=== PATIENT | male | born 1980 | race Hispanic/Latino ===

== ENCOUNTER 2018-09-14 08:02 | Emergency (ER) | payer SELFPAY ==
[2018-09-14] MEDS ORDERED: SODIUM CHLORIDE 0.9% (FLUSH) 10 ML SYG IV PRN (08:14)
[2018-09-14 08:20] VITALS: TEMP 97.6
[2018-09-14] MEDS ORDERED: ALUM & MAG HYDROX-SIMETHICONE 30 ML, LIDOCAINE VISCOUS 2% 15 ML PO ONE ×2 (08:34)
--- NOTE | 2018-09-14 08:34 | ED.PDOC ---
History of Present Illness - General Chief Complaint: Chest Pain/NH Stated Complaint: chest pressure Time Seen by Provider: 09/14/18 08:10 Source: patient Exam Limitations: no limitations - History of Present Illness Initial Comments: 8 1/2 HR H/O L-SIDED CP. CP STARTED LAST NIGHT AT MIDNIGHT LAYING SUPINE. PT STATES HAS H/O OCCASIONAL GERD BUT DOES NOT TAKE MED FOR IT. PAIN HAS IMPROVED GREATLY BUT IS STILL PRESENT. HE HAS HAD INCREASED BURPING THIS AM. C/O SIMILAR SX APPROX 2 WKS AGO. Timing/Duration: 7-24 hours Severity/Quality: moderate, pressure Location: other - L CHEST Chest Pain Radiation: no radiation Activities at Onset: rest Prior Chest Pain/Cardiac Workup: no prior cardiac workup Improving Factors: nothing Worsening Factors: nothing, other - NOT WORSENED BY DEEP BREATH. Nitro Today/Relief: no nitro taken today Aspirin Treatment Today: no aspirin today Associated Symptoms: heartburn Allergies/Adverse Reactions: Allergies NO KNOWN ALLERGY Allergy (Verified 09/14/18 08:20) Home Medications: Ambulatory Orders NK [NK] 09/14/18 Review of Systems - Review of Systems Constitutional: States: no symptoms reported EENTM: States: no symptoms reported Respiratory: States: no symptoms reported. Denies: cough, short of breath Cardiology: States: chest pain. Denies: palpitations Gastrointestinal/Abdominal: Denies: abdominal pain, constipation, diarrhea, nausea Genitourinary: States: no symptoms reported Musculoskeletal: States: no symptoms reported Skin: States: no symptoms reported Neurological: States: no symptoms reported Endocrine: States: no symptoms reported Hematologic/Lymphatic: States: no symptoms reported All other Systems: Reviewed and Negative Past Medical History (General) - Patient Medical History Hx Stroke: No Hx Congestive Heart Failure: No Hx Diabetes: No Surgical History: no surgical history - Vaccination History Hx Influenza Vaccination: No - Social History Hx Tobacco Use: No Family Medical History - Family History Father Family History: Unknown Living Status: Unknown Physical Exam - Physical Exam General Appearance: Alert, Well Nourished Eyes, Ears, Nose, Throat Exam: PERRL/EOMI, normal ENT inspection Neck: non-tender, full range of motion, supple, other - ON BRUIT Respiratory: chest non-tender, lungs clear, normal breath sounds, no respiratory distress, no accessory muscle use Cardiovascular/Chest: normal peripheral pulses, regular rate, rhythm, no JVD, no murmur Gastrointestinal/Abdominal: normal bowel sounds, non tender, soft Extremity: normal range of motion, normal inspection 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 ALSO, PAIN IS REPRODUCED BY LUE EXAM (INTERNAL AND EXTERNAL ROTATION OF L SHOULDER AGAINST RESISTANCE PRODUCES THE PAIN IN THE L PECTORALIS MAJOR). PT MENTIONS HE LAYS TILE FOR WORK AND PRESSES DOWN USING LUE. INITIAL W/U NEG. REPEATING A 2ND TROPONIN TO R/O ACUTE CORONARY SYNDROME SINCE IT HAS NOW BEEN 11 1/2 HRS SINCE ONSET OF SX. MUSCULOSKELETAL, NON-CARDIAC PAIN. 09/14/18 12:29 TROP NEG X 2 over 12 hrs, thus ENOUGH TIME HAS LAPSED TO RULE OUT ACS IN THE ER. CKMB NEG. CK ELEVATED WHICH CORRELATES WITH MUSCLULOSKELETAL PAIN. CXR NEG. EKG NSR. CBC AND CMP NO CONCERNS. SAFE FOR DC TO HOME. PT STATES HE HAS ANTI-INFLAMMATORIES AT HOME WHICH HE WILL TAKE. Departure - Departure Clinical Impression: Musculoskeletal chest pain, Acute chest pain Disposition: Discharge to Home or Self Care Condition: Good Departure Forms: ED Discharge - Pt. Copy, Patient Portal Self Enrollment Instructions: Chest Pain That Is Not Caused by the Heart (DC) Diet: resume usual diet Activity: increase activity as tolerated Home Medications: Ambulatory Orders NK [NK] 09/14/18 Additional Instructions: Please follow-up with the clinic in [place] you usually go to in order to ensure health prevention such as your cholesterol.
[2018-09-14] MEDS ORDERED: LIDOCAINE HCL 2% (MOUTH-THROAT) 15 ML UD ONE (08:40)
[2018-09-14] MEDS ORDERED: ALUM & MAG HYDROX-SIMETHICONE 30 ML UD ONE (08:40)
--- NOTE | 2018-09-14 08:44 | RAD ---
EXAM DESCRIPTION: Chest,1 View CLINICAL HISTORY: 38 years Male, CHEST PAIN COMPARISON: None. IMPRESSION: Heart size and pulmonary vascularity are within normal limits. There is no airspace consolidation, pleural effusion, or pneumothorax. No acute osseous abnormality. Electronically signed by: Jose Ivey MD 09/14/2018 8:43 AM [facility]
[2018-09-14] MEDS ORDERED: MORPHINE SULFATE INJ 10 MG/ML VIAL IV ONE (11:25)
[2018-09-14 12:38] VITALS: BP 111/58; O2SAT 98
== END 2018-09-14 12:38 | disposition home or self-care (01) ==
LOC: ER 08:02
DX: R07.89 Other chest pain (principal)
CPT/HCPCS: 36415; 71045; 80053; 82550; 82553; 84484; 85025; 93005; J2270

== ENCOUNTER 2020-11-11 07:43 | Emergency (ER) | payer SELFPAY ==
--- NOTE | 2020-11-11 08:08 | ED.PDOC ---
History of Present Illness - General Chief Complaint: Chest Pain/VA Stated Complaint: chest pain X 1 week Time Seen by Provider: 11/11/20 07:48 Source: patient - History of Present Illness Initial Comments: PATIENT PRESENTS WITH SYMPTOMS OF "AIR IN MY CHEST", HE FEELS PRESSURE FROM HIS EPIGASTRIC AREA TO HIS RIGHT CHEST, SIMILAR TO SYMPTOMS PREVIOUSLY DIAGNOSED WITH GERD. ONSET LAST NIGHT WHILE ASLEEP SOME 8 HOURS AGO, HE IS NOT CURRENTLY TAKING ANY MEDICATION FOR GERD. HE WAS SUPPOSED TO GO GET WORK UP FOR REFLUX, BUT NEVER DID DUE TO PANDEMIC. DENIES N/V/SOB/ DIAPHORESIS. Severity/Quality: mild Chest Pain Radiation: no radiation Activities at Onset: sleep Prior Chest Pain/Cardiac Workup: non-cardiac Worsening Factors: nothing Allergies/Adverse Reactions: Allergies NO KNOWN ALLERGY Allergy (Verified 11/11/20 07:52) Home Medications: Ambulatory Orders Omeprazole 40 mg PO DAILY #30 cap 11/11/20 Review of Systems - Review of Systems Constitutional: States: no symptoms reported EENTM: States: no symptoms reported Respiratory: States: no symptoms reported Cardiology: States: no symptoms reported Gastrointestinal/Abdominal: States: see HPI Genitourinary: States: no symptoms reported Past Medical History (General) - Patient Medical History Hx Seizures: No Hx Stroke: No Hx Dementia: No Hx Asthma: No Hx of COPD: No Hx Cardiac Disorders: No Hx Congestive Heart Failure: No Hx Pacemaker: No Hx Hypertension: No Hx Thyroid Disease: No Hx Diabetes: No Hx Gastroesophageal Reflux: No Hx Renal Disease: No Hx Cancer: No Hx of HIV: No Hx Hepatitis C: No Hx MRSA: No Surgical History: no surgical history - Vaccination History Hx Tetanus, Diphtheria Vaccination: No Hx Influenza Vaccination: No - Social History Hx Tobacco Use: No Hx Alcohol Use: No - Female History Patient is a Female of Child Bearing Age (10 -59 yrs old): No Family Medical History - Family History Father Family History: Unknown Living Status: Unknown Physical Exam - Physical Exam General Appearance: Alert, Anxious, Well Developed, Well Groomed, Well Hydrated, Well Nourished Eyes, Ears, Nose, Throat Exam: PERRL/EOMI, normal ENT inspection, TMs normal Neck: non-tender, full range of motion, supple Respiratory: chest non-tender, lungs clear, normal breath sounds Cardiovascular/Chest: normal peripheral pulses, regular rate, rhythm, no edema, no gallop, no JVD Gastrointestinal/Abdominal: normal bowel sounds, non tender, soft, no organomegaly, no pulsatile mass Extremity: normal range of motion, non-tender, normal inspection Neurologic: no motor/sensory deficits, alert, normal mood/affect, oriented x 3 Skin Exam: normal color, warm/dry Progress - EKG/XRAY/CT EKG: Sinus, no ST T wave changes Comments: NO STEMI, NORMAL EKG CT Ordered: No Departure - Departure Clinical Impression: Chronic GERD Time of Disposition: 09:50 Disposition: Discharge to Home or Self Care Condition: Good Departure Forms: ED Discharge - Pt. Copy, Patient Portal Self Enrollment Instructions: DI for Chest Pain, Acid Reflux, Adult and Adolescent ED Prescriptions: Omeprazole 40 mg PO DAILY #30 cap Home Medications: Ambulatory Orders Omeprazole 40 mg PO DAILY #30 cap 11/11/20
--- NOTE | 2020-11-11 08:11 | RAD ---
Study: Frontal and Lateral Radiographs of the Chest. Indication: chest pain Comparison: September 14, 2018 Impression: Heart size normal. Lungs clear. No acute osseous abnormality. Electronically signed by: Gavin Penaloza MD 11/11/2020 8:09 AM [facility]
[2020-11-11] MEDS ORDERED: ALUM & MAG HYDROX-SIMETHICONE 30 ML UD ONE (08:12)
[2020-11-11] MEDS: FAMOTIDINE 20 MG TAB PO STA (08:12)
[2020-11-11] MEDS: ALUM & MAG HYDROX-SIMETHICONE 30 ML, LIDOCAINE VISCOUS 2% 15 ML PO ONE ×2 (08:12)
[2020-11-11] MEDS ORDERED: LIDOCAINE HCL 2% (MOUTH-THROAT) 15 ML UD ONE (08:12)
[2020-11-11 10:29] VITALS: BP 110/70; TEMP 97.8; O2SAT 97
== END 2020-11-11 10:08 | disposition home or self-care (01) ==
LOC: ER 07:43
DX: K21.9 Gastro-esophageal reflux disease without esophagitis (principal); R07.89 Other chest pain